=== PATIENT | male | born 1980 | race African-American/Black ===

== ENCOUNTER 2019-07-18 21:45 | Emergency (ER) | payer SELFPAY ==
[2019-07-18 22:34] LABS: #Basophils 0.1 thou/uL (0.0-0.2); #Eosinphils 0.1 thou/uL (0.0-0.7); #Lymphocytes 1.2 thou/uL (1.20-3.40); #Monocytes 1.1 thou/uL (0.11-0.59); #Neutrophils 7.9 thou/uL (1.40-6.50); %Basophils 0.6 % (0.0-1.0); %Eosinophils 1.4 % (0.0-10.0); %Lymphocytes 11.3 % (21.0-51.0); %Monocytes 10.5 % (0.0-10.0); %Neutrophils 76.2 % (42.0-75.0); Mean Corpuscular Hemoglobin 30.5 pg (27.0-31.0); Mean Corpuscular Volume 89.5 fL (78.0-98.0); Mean Platelet Volume 7.5 fL (7.4-10.4); Platelet Count 161 thou/uL (130-400); Red Blood Cell (RBC) Count 4.59 mill/uL (4.70-6.10); White Blood Cell (WBC) Count 10.4 thou/uL (4.8-10.8)
[2019-07-18] MEDS ORDERED: Fentanyl 100 MCG/2 ML VIAL ONE (22:40)
[2019-07-18] MEDS ORDERED: Ketorolac Tromethamine 30 MG/ML VIAL ONE (22:40)
[2019-07-18 22:50] LABS: Bacteria/HPF None Seen HPF (None Seen); Bilirubin Negative (Negative); Blood, Urine Trace (Negative); Clarity Clear (Clear); Glucose, Urine (Dipstick) Normal (Negative); Leukocyte Negative Leu/uL (Negative); Nitrite Negative (Negative); Protein, Urine (Dipstick) 30 mg/dL (Neg-Trace); RBC/HPF 0-3 HPF (0-3); Squamous Epithelial 0-3 HPF (0-3); WBC/HPF 0-3 HPF (0-3)
[2019-07-18 22:56] LABS: ALT (SGPT) 11 U/L (8-55); AST (SGOT) 12 U/L (5-34); Albumin 4.2 g/dL (3.5-5.0); Alkaline Phosphatase 148 U/L (40-150); Anion Gap 11 mmol/L (10-20); BUN (Urea Nitrogen) 24 mg/dL (8.9-20.6); Bilirubin, Total 0.3 mg/dL (0.2-1.2); Calc. Creatinine Clearance 0 mL/min (70-130); Calcium 9.3 mg/dL (7.8-10.44); Carbon Dioxide 24 mmol/L (22-29); Chloride 106 mmol/L (98-107); Estimated GFR-MDRD 72; Globulin 3.5 g/dL (2.4-3.5); Glucose 102 mg/dL (70-105); Potassium 3.7 mmol/L (3.5-5.1); Protein, Total 7.7 g/dL (6.0-8.3); Sodium 137 mmol/L (136-145)
--- NOTE | 2019-07-18 23:04 | ULT ---
US Testicular W Doppler HISTORY: Left testicular pain x1 month. COMPARISON: None. FINDINGS: Real-time imaging of the testes were performed. The right testicle measures 5.5 cm in lengt h and shows a mildly heterogeneous echotexture but no focal discrete lesions. There is a left testicular solid appearing mass 4.3 x 8.4 cm in size replacing a large portion of the left testicle. The epididymal regions are somewhat difficult to visualize but appear unremarkable. Doppler evaluation spectral analysis: Flow shown to both testes. IMPRESSION: Large left testicular mass in the absence of trauma this is highly suspicious for neoplas m.
--- NOTE | 2019-07-18 23:50 | RAD ---
XR Chest 1 View Portable HISTORY: Testicular mass. Coughing up blood. COMPARISON: None FINDINGS: Heart size and is within normal limits for portable technique. Mediastinal structures appea r unremarkable. The lungs are clear of infiltrates. No pulmonary nodules are identified. IMPRESSION: No active intrathoracic disease.
== END 2019-07-18 23:57 | disposition home or self-care (01) ==
LOC: ERS 21:45
DX: N50.9 Disorder of male genital organs, unspecified (principal); F17.210 Nicotine dependence, cigarettes, uncomplicated
CPT/HCPCS: 36415; 71045; 76870; 80053; 81003; 81015; 82105; 83615; 85025; 93976; 96374; 96375; J1885; J3010

== ENCOUNTER 2019-07-26 11:08 | Day surgery (SDC) | payer SELFPAY ==
[2019-07-23 10:09] VITALS: BMI 29.0
[2019-07-26] MEDS ORDERED: Fentanyl 250 MCG/5 ML VIAL ONE (11:51)
[2019-07-26] MEDS ORDERED: Fentanyl 100 MCG/2 ML VIAL ONE ×2 (11:51→13:55)
[2019-07-26] MEDS ORDERED: Famotidine/PF 20 mg/2ml Vial ONE (11:51)
[2019-07-26] MEDS ORDERED: Bupivacaine 0.25% HCL 30 ML VIAL ONE (11:54)
--- NOTE | 2019-07-26 15:25 | OP ---
DATE OF PROCEDURE: 07/26/2019 PREOPERATIVE DIAGNOSIS: Left testicular mass. POSTOPERATIVE DIAGNOSIS: Left testicular mass. PROCEDURE PERFORMED: Left radical orchiectomy. ANESTHETIC: General with local. ESTIMATED BLOOD LOSS: Less than 25 mL. SPECIMEN SENT: Left testicle with cord. FINDINGS: Left testicular mass. INDICATIONS FOR SURGERY: This is a 39-year-old male, who has had a history of left testicular mass. It started to hurt him and increased in size, brought him into the ER a few days ago. An ultrasound there showed the majority of the testicle was taken up with a solid mass that was suspicious for cancer of the testicle. His beta-hCG and alpha-fetoprotein were normal. His LDH was elevated. His chest x-ray was clear. I saw him in my office, talked with him and his common-law about treatment for this, starting with the left radical orchiectomy, telling them that there is a high probability that this is a testicular cancer and that if it was not a cancer, it would be actually a very good thing for him to find. He already has a family so fertility issues are really not much of a concern right now for this family, but this was discussed with them. I indicated this testicle does not probably function very well in terms of hormone replacement or fertility at this point with ultrasound showing the majority of it taken up with a solid mass. They are agreeable to proceed on with the surgery. DESCRIPTION OF PROCEDURE: Obtained written and verbal consent from the patient. After receiving IV Ancef, he was taken back to the operating suite. He was placed in a supine position on the treatment table. PlexiPulses were placed on his lower extremities and turned on. He was given a general anesthetic and oral intubation. He was then shaved and then sterilely prepped and draped for the above procedure. A small inguinal incision was made from where the external ring was palpable toward the anterior superior iliac spine. This was done with a small skin knife. We then went through the subcutaneous tissues with the Bovie. There was a one rather large vein that was tied off because of its size. The fat was then dissected off and Eugenio's layer was entered and we then dissected down to the external oblique and down to the inguinal ring. The cord was visualized coming out of the external ring. At this point, we went ahead and made a small nusrat in the external oblique and opened it up at the length of the incision. The ilioinguinal nerve was identified and dissected off the surface of the cord so that it could be left intact. We then went ahead and finger dissected around the cord itself and then placed a right angle around this and then brought in a small [place] drain and doubled it around this and then tightened it up and clamped it to act as a tourniquet. We then went ahead and dissected the testicle out of the scrotum and excised the gubernacular fibers. There were a couple of little perforating vessels going from the cord down to deeper structures that we divided between hemostats and secured with 2-0 silks. We then retracted the internal oblique musculature laterally and then dissected the cord itself all the way back to the internal ring. At this point, we placed the hemostat across the cord to split into two halves and with large Hugo clamps secured each side of this split x2. A large Hugo was placed on the specimen side, then we cupped between these, removing the cord in the testicle together, passing it off, wrapped in a blue towel. We used blue towels to protect once we started the dissection on the inguinal canal itself. At this point, we went ahead and secured our cord with a combination of 0 silk and 2-0 suture ligatures on each of the two halves of the cord. There was good hemostasis. We then changed gloves, brought new instruments and irrigated out copiously with sterile water, obtained hemostasis which was good. We then closed the external oblique with a running 3-0 Vicryl stitch. We loosely closed Eugenio's layer with interrupted 2-0 chromics and we closed the skin with 4-0 Vicryl subcuticular closure, followed by Dermabond closure. Prior to starting these closures, we did drip in 10 mL of 0.25% Marcaine without epinephrine to use as a topical local anesthetic in the incision itself and another 10 mL was placed along the course where a subcuticular closure was to be done also for postop pain control. Fluffs and wet panties were used to keep the scrotum up and elevated. A dressing was not placed over the Dermabond. At this point, he was awakened and extubated and taken by stretcher to Recovery. Sponge and needle counts were correct x2. Job ID: [id number]
[2019-07-26] MEDS ORDERED: Acetaminophen/Codeine 30-300mg Tablet ONE (15:27)
[2019-07-26] MEDS ORDERED: Rocuronium Bromide 10 MG/ML (10ML VIAL) ONE (20:48)
[2019-07-26] MEDS ORDERED: Lidocaine 1% PF 5 ML VIAL ONE (20:48)
[2019-07-26] MEDS ORDERED: Dexamethasone 20 MG/5 ML VIAL ONE (20:48)
[2019-07-26] MEDS ORDERED: Glycopyrrolate 0.2 MG/ML 5 ML SYRINGE ONE (20:48)
[2019-07-26] MEDS ORDERED: Ondansetron PF 4 MG/2 ML Vial ONE (20:48)
[2019-07-26] MEDS ORDERED: PROPOFOL 200 MG/20 ML VIAL ONE (20:48)
[2019-07-26] MEDS ORDERED: Ketorolac Tromethamine 30 MG/ML VIAL ONE (20:48)
[2019-07-26] MEDS ORDERED: Metoclopramide HCl 10 MG/2 ML VIAL ONE (20:48)
== END 2019-07-26 15:40 | disposition home or self-care (01) ==
LOC: SDC 11:08
PROVIDERS: ATTEND Urology
PROC: 0VTK0ZZ Resection of Left Epididymis, Open Approach (ICD-10-PCS; principal; 2019-07-26)
PROC: 0VR Male Reproductive System, Replacement (ICD-10-PCS; principal; 2019-07-26)
PROC: 0VBG0ZZ Excision of Left Spermatic Cord, Open Approach (ICD-10-PCS; principal; 2019-07-26)
DX: C62.92 Malignant neoplasm of left testis, unspecified whether descended or undescended (principal); Z95.1 Presence of aortocoronary bypass graft
CPT/HCPCS: 88309; J0131; J0690; J1100; J1885; J2001; J2405; J2704; J2765; J3010; S0020; S0028

== ENCOUNTER 2019-08-09 09:00 | Outpatient (CLI) | payer OTHER ==
--- NOTE | 2019-08-09 09:59 | CT ---
CT abdomen and pelvis with IV and oral contrast HISTORY: Testicular cancer. FINDINGS: The lung bases are clear. Tiny nonspecific low-density lesions within each liver lobe are f ar too small to characterize. Likely tiny cysts. The spleen, kidneys, adrenal glands, and pancreas have a normal CT appearance. Nonenlarged, nonspecif ic retroperitoneal lymph nodes. Calcification within the arterial structures. Small fat-containing umbilical hernia. Appendix not inflamed. Postoperative changes of the left groin consistent with rece nt left orchiectomy. IMPRESSION: No CT evidence of metastatic disease. Atherosclerosis.
[2019-08-09] MEDS ORDERED: Iopamidol 370 76% 100 ML VIAL ONE (13:42)
== END 2019-08-09 09:01 | disposition home or self-care (01) ==
LOC: CT 09:00
PROVIDERS: ATTEND Urology
DX: C62.12 Malignant neoplasm of descended left testis (principal); I70.90 Unspecified atherosclerosis
CPT/HCPCS: 74177; Q9967